=== PATIENT | male | born 1975 | race Caucasian/White ===

== ENCOUNTER 2023-04-15 19:48 | Observation (INO) | payer OTHER, SELFPAY ==
[2023-04-15] VITALS (7 sets, daily range): BP systolic 125–150; BP diastolic 46–89; PULSE 60–72; RESP 14–16; TEMP 36.8; O2SAT 97–100
--- NOTE | ~2023-04-15 | CT_ITS ---
EXAMINATION: CTA BRAIN/CAROTID DATE: 04/15/2023 20:07 INDICATION: Stroke with weakness, confusion and slurred speech TECHNIQUE: Computed tomographic angiography (CTA) of the head and neck was performed with 100 mL Omni paque-350 intravenous contrast. Multiplanar reconstructions and maximum intensity projection 3D-recon structions of the carotid arteries and of the intracranial arteries were created by the technologist on a separate workstation. Automated exposure control and iterative reconstruction technique were emp loyed.The dose-length product was 1222.53 mGy-cm. COMPARISON: None. FINDINGS: Carotid arteries: Visualized portion of the thoracic aorta is normal in caliber with no evident atherosclerotic plaque or dissection. There bridging near occlusion stenosis of the right carotid bulb relative to normal di stal artery lumen diameter (NASCET criteria) with nearly indiscernible threadlike contrast seen exten ding to the carotid siphon where there is significant collateral resupply of contrast via the right o phthalmic artery. There is no evident atherosclerotic plaque with 0% stenosis of the left carotid bul b relative to normal distal artery lumen diameter. There is complete occlusion of the left vertebral artery beginning at its origin. Mild groundglass opacity in the visualized upper lungs likely due to expiratory phase of imaging. Mild thoracic spondylosis. Intracranial arteries There is no hemodynamically significant stenosis basilar and left internal carotid arteries. There is a significant stenosis, likely 50-70% near the junction of the left vertebral and basilar arteries. There are no aneurysms identified. Both A1 and P1 segments are patent. There is also a patent anteri or communicating artery. Cerebral arterial arborization appears symmetric. The bilateral anteroinferi or cerebellar arteries are not identified with apparent decrease in contrast opacified vascularity in the bilateral cerebellar hemispheres. No abnormally enhancing brain lesions to suggest malignancy. IMPRESSION: 1. Likely near occlusion stenosis of the right carotid bulb relative to normal distal artery lumen di ameter (NASCET criteria). Nearly indiscernible threadlike contrast extending to the right carotid sip hon where there is a supplement-of flow via the right ophthalmic artery. 2. 0% stenosis of the left carotid bulb relative to normal distal artery lumen diameter. 3. 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 4. Significant likely 50-70% stenosis near the junction of the left vertebral and basilar arteries. 5. Bilateral posterior-inferior cerebellar arteries are not identified and there appears to be subjec tively decreased vascular flow to the bilateral cerebellar hemispheres relative to the flow to the ce rebral hemispheres. Reviewed, dictated and finalized at location A. IMPRESSION: 1. Likely near occlusion stenosis of the right carotid bulb relative to normal distal artery lumen diameter (NASCET criteria). Nearly indiscernible threadlike contrast extending to the right carotid siphon where there is a supplement-of flow via the right ophthalmic artery. 2. 0% stenosis of the left carotid bulb relative to normal distal artery lumen diameter. 3. 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 4. Significant likely 50-70% stenosis near the junction of the left vertebral a nd basilar arteries. 5. Bilateral posterior-inferior cerebellar arteries are not identified and ther e appears to be subjectively decreased vascular flow to the bilateral cerebella r hemispheres relative to the flow to the cerebral hemispheres.
--- NOTE | ~2023-04-15 | CT_ITS ---
EXAMINATION: CT brain wo con DATE: 04/15/2023 19:56 INDICATION: Stroke with weakness, confusion and slurred speech TECHNIQUE: Computed tomography (CT) of the head was performed without intravenous contrast. Sagittal and coronal reconstructions were performed. The mA was adjusted according to patient size. Iterative reconstruction technique was employed. The dose-length product was 681.00 mGy-cm. COMPARISON: None FINDINGS: Small regions of nonspecific decreased attenuation within the left and right cerebellar hemispheres f or which differential includes age-indeterminate infarcts. No acute intracranial hemorrhage or abnorm al extra axial fluid collection. Ventricles are normal and symmetric. No mass/mass effect. Mild mucos al thickening the left sphenoid and bilateral ethmoid sinuses. Small effusion in the hypopneumatized left mastoid. The orbits, paranasal sinuses and right mastoid air cells are normal. IMPRESSION: 1. Small regions of nonspecific decreased attenuation within the bilateral cerebellar hemispheres, at ypical for age. The differential diagnosis includes the indeterminate infarcts, premature chronic sma ll vessel ischemic disease (especially if the patient has cardiovascular risk factors), demyelinating disease such as multiple sclerosis, drug abuse, vasculitis, reactive astrocytosis (gliosis) secondar y to nonspecific etiology or metastatic disease. Reviewed, dictated and finalized at location A. IMPRESSION: 1. Small regions of nonspecific decreased attenuation within the bilateral cere bellar hemispheres, atypical for age. The differential diagnosis includes the i ndeterminate infarcts, premature chronic small vessel ischemic disease (especia lly if the patient has cardiovascular risk factors), demyelinating disease such as multiple sclerosis, drug abuse, vasculitis, reactive astrocytosis (gliosis) secondary to nonspecific etiology or metastatic disease.
--- NOTE | 2023-04-15 19:48 | ECG_ITS ---
Measurements Intervals [place] Rate: 64 P: -17 MO: 149 QRS: -63 QRSD: 109 T: 41 QT: 405 QTc: 420 Interpretive Statements SINUS RHYTHM MARKED LEFT AXIS DEVIATION [QRS AXIS < -30] NO PREVIOUS ECG AVAILABLE FOR COMPARISON Electronically Signed On 04-16-2023 10:59:55 CDT by Mark Cooley M.D.
--- NOTE | 2023-04-15 19:55 | PC.NURSE ---
pt A&Ox4 at this time. slurred speech has resolved. pt able to move all extremities without difficulty. pt states he is ready to go. states he was at [facility] and [place] today and was told he had a clot but he signed out because he didn't believe them.
--- NOTE | 2023-04-15 20:01 | ED.NEUROSD ---
HPI - Neuro Symptoms/Deficit General Chief Complaint: Suspected CVA Stated Complaint: CODE CVA History of Present Illness HPI Narrative: HPI limited due to patient's altered mental status This is a 47-year-old male, with past history of seizure, brought in by EMS with strokelike symptoms. Last known well unknown. According to EMS, the patient was seen earlier today at [facility] with report of finding a carotid vessel occlusion. On arrival the patient is aphasic. Related Data Allergies Allergy/AdvReac Type Severity Reaction Status Date / Time No Known Allergies Allergy Verified 04/15/23 21:02 Review of Systems Review of Systems: Unable to obtain review of systems due to patient's aphasia PMFSH Past Medical History Medical History (Updated 04/16/23 @ 01:02 by Prince Burden MD) Seizure Surgical History Surgical History (Updated 04/15/23 @ 20:06 by Prince Burden MD) No significant past surgical history Social History Social History (Updated 04/15/23 @ 20:06 by Prince Burden MD) Additional smoking assessment comments: Unknown smoking history Alcohol intake: unknown Substance use: unknown Exam Narrative: GENERAL: Well-developed, well-nourished, in mild distress HEAD: Normocephalic, atraumatic. EYES: PERRLA and right gaze preference ENT: Nares clear, no rhinorrhea or epistaxis. Mucous membranes moist. Oropharynx without tonsillar hypertrophy exudate or other lesions. NECK: Supple. No adenopathy or masses. No carotid bruits or JVD CHEST: Clear to auscultation. No respiratory distress. No wheezes rales or rhonchi HEART: Regular rate and rhythm. No murmur heard. Normal peripheral pulses. ABDOMEN: Soft, nontender, nondistended, normal active bowel sounds. EXTREMITIES: Normal range of motion. No edema. SKIN: Warm, dry, no rash. NEURO: Alert, unable to obtain orientation. Right upper and lower extremity hemiparalysis, right-sided lower facial droop, right-sided gaze preference. No noted ataxia on the left. Unable to assess for ataxia on the right. PSYCH: Normal mood and affect. Course Course Emergency Course: 20:20 - CT head not concerning for mass or bleed. I discussed the patient with neurologist, Dr. Woodson. My review of the CTA is concerning for right internal carotid occlusion. Given the patient's high initial NIH score and last known well approximately 3 AM, we agreed the patient is better served transferred to a facility with thrombectomy capabilities. I spoke with [facility] ED physician, Dr. Aquino who evaluated the patient earlier today. Notes patient had similar symptoms. His suspicion at the time was for seizure. The patient was given IV and oral Keppra. CT head was not concerning for mass or intracranial hemorrhage, though CTA was concerning for right internal carotid occlusion. The patient was discussed with [facility] with recommendation for transfer. The patient however left AGAINST MEDICAL ADVICE. 20:25 - On reevaluation, the patient's symptoms appear to have resolved. The patient may have had a seizure with Skyler's paralysis. 20:40 - CTA Head/Neck demonstrates Likely near occlusion stenosis of the right carotid bulb. CT Brain demonstrates changes concerning for possible early ischemic changes. Though the patient's symptoms are on the opposite suspected side, his near carotid occlusion is concerning. 21:01 - The patient states he wants to leave AGAINST MEDICAL ADVICE. I had a long conversation with him regarding the likelihood of repeat symptoms, the presence of his carotid vessel occlusion and the strong possibility of repeat symptoms, and permanent disability. I also advised him of recommended treatment, including likely transfer to a tertiary facility. The patient repeatedly insists he will not have repeat symptoms and has nothing wrong. He is alert and oriented x3. I briefly discussed the patient with legal compliance officer
[2023-04-15 20:05] LABS: Basophils Percent Auto 0.3 % (0.2-1.2); Eosinophils Absolute Auto 0.2 K/mm3 (0-0.3); Eosinophils Percent Auto 1.4 % (0-4.4); Hematocrit 54.2 % (42.0-52.0); Hemoglobin 17.5 g/dL (14.0-18.0); Immature Granulocyte Absolute 0.06 K/mm3 (0.00-0.031); Immature Granulocyte Percent A 0.5 % (0-0.5); Lymphocytes Absolute Auto 2.06 K/mm3 (0.9-3.2); Lymphocytes Percent Auto 17.5 % (18.3-44.2); Mean Corpuscular HGB Conc 32.3 g/dl (32-36); Mean Platelet Volume 9.7 fl (7.4-10.4); Monocytes Absolute Auto 0.8 K/mm3 (0.1-0.6); Monocytes Percent Auto 6.4 % (2.6-8.5); Neutrophils Absolute Auto 8.7 K/mm3 (1.3-6.7); Neutrophils Percent Auto 73.9 % (45.5-73.1); Platelet Count Result 263 k/mm3 (150-375); Red Blood Count 5.83 M/mm3 (4.6-6.20); White Blood Count 11.8 K/mm3 (4.5-10.0)
[2023-04-15 20:14] LABS: Ethanol < 10 mg/dL (<10)
[2023-04-15 20:15] LABS: Prothrombin Time 13.8 Seconds (11.1-14.7)
[2023-04-15 20:16] LABS: Alanine Aminotransferase 31 U/L (6-50); Albumin Level 4.6 g/dL (3.5-5.1); Alkaline Phosphatase 89 U/L (38-126); Anion Gap 10 mmol/L (8-16); Aspartate Amino Transferase 31 U/L (17-59); Bilirubin,Total 1.4 mg/dL (0.2-1.3); Blood Urea Nitrogen 13 mg/dL (9-20); Calcium 9.3 mg/dL (8.4-10.2); Carbon Dioxide 22 mmol/L (22-30); Chloride 105 mmol/L (98-107); Estimated Glomerular Filt Rate > 60; Glucose 110 mg/dL (65-110); Potassium 4.4 mmol/L (3.4-5.0); Sodium 137 mmol/L (137-145)
--- NOTE | 2023-04-15 20:30 | PC.NURSE ---
pt states he doesn't want anything done because he is signing out AMA. Dr. Burden explained the risks of signing out AMA.
[2023-04-15] MEDS: SODIUM CHLORIDE 0.9% IV 1,000 ML 999 ML (20:54)
[2023-04-16] VITALS (17 sets, daily range): BP systolic 112–149; BP diastolic 58–91; PULSE 52–75; RESP 16–22; TEMP 36.1–36.6; O2SAT 97–100; BMI 32.1
[2023-04-16 05:19] LABS: Appearance Urine Clear (Clear); Bilirubin Urine Negative (Negative); Blood Urine Negative (Negative); Color Urine Yellow (Yellow); Glucose Urine UA Negative (Negative); Ketones Urine 2+ mg/dL (Negative); Leukocyte Esterase Ur Negative LEU/UL (Negative); Nitrate Urine Negative (Negative); Protein Urine Negative (Negative)
--- NOTE | 2023-04-16 05:33 | PC.NURSE ---
2216: Accepted to [facility]. On waitlist for bed. 0527: Called for bed status, nothing available, yet. Will be based on discharges.
[2023-04-16 05:35] LABS: Barbiturate Screen Urine Negative (Negative); Benzodiazepines Screen Urine Negative (Negative)
[2023-04-16 05:47] LABS: Cannabinoid Screen Urine Positive (Negative); Cocaine Screen Urine Negative (Negative); Methadone Screen Urine Negative (Negative); Opiate Screen Urine Negative (Negative); Phencyclidine Screen Urine Negative (Negative)
[2023-04-16 06:01] LABS: Specific Grav Ur 1.069 (1.001-1.035)
[2023-04-16 06:02] LABS: Amphetamine Screen Urine Positive (Negative)
[2023-04-16 06:05] LABS: Add Urine Microscopic? NO
--- NOTE | 2023-04-16 06:37 | ADMGEN ---
This patient, Bo Lehman, was admitted to IMU Room 210-01. Patient/family oriented to hospital policies and general routines including ID bracelet, bed and alarms, visiting hours, pain management, procedures, bathroom and other care routines, personal items, smoking policy, room service/diet, and visiting hours. Information on how to activate the Rapid Response Team has been discussed. Patient/Family are encouraged to report perceived risks to care and to ask questions if they do not understand what they are told or what they should do.
[2023-04-16] MEDS: levETIRAcetam 500 MG TABLET PO ×2 (09:48→20:41)
--- NOTE | 2023-04-16 11:48 | PM.IMHP ---
H&P: HPI History of Present Illness Date/Time: 04/16/23 11:48 Chief Complaint: Seizure Narrative: 47-year-old male with history of seizures presenting with stroke-like symptoms. He has had intermittent episodes of right sided weakness and speech changes. His symptoms are resolved at this time. No chest pain or shortness of breath. No nausea, vomiting or diarrhea. No fevers or chills. Review of Systems Review of Systems: 12 point review of systems was assessed and was negative except as noted in the HPI [facility] Past Medical History Medical History Seizure Surgical History Surgical History No significant past surgical history Family History Family History Mother Hypertension Cerebrovascular accident Father Myocardial infarct Social History Social History Smoking packs per day: 0.5 Smoking cigarettes per day: 10.0 Years smoked: 10 Smoking pack-years: 5.00 Smoking status: Current every day smoker Additional smoking assessment comments: Unknown smoking history Alcohol intake: former Substance use: unknown Substance use type: marijuana and methamphetamine Last use: 04/09/23 Lack of Transportation: No Lack of Food: Never True Current Housing: I Have Housing Concerned About Future Housing: No Difficulty Paying Gas/Electric Bills: No Difficulty Paying for Meds: No Currently Unemployed: No Education: High School Diploma/GED Difficulty w/ Childcare or Family Care: No Spiritual care concerns: No Meds Home Medications and Allergies Home Medications Medication Instructions Recorded Confirmed Type No Home Medications 04/16/23 04/16/23 History Allergies Allergy/AdvReac Type Severity Reaction Status Date / Time No Known Allergies Allergy Verified 04/16/23 09:11 Vital Signs Vital Signs - 24 hr 04/15/23 19:37 04/15/23 20:05 04/15/23 20:15 Temperature 98.2 F Pulse Rate 63 Respiratory Rate 16 Blood Pressure 150/79 H 150/79 H Pulse Oximetry 98 Oxygen Delivery Room Air 04/15/23 20:17 04/15/23 21:17 04/15/23 21:47 Temperature Pulse Rate 60 Respiratory Rate 16 14 Blood Pressure 142/46 H 125/77 150/89 H Pulse Oximetry Oxygen Delivery 04/15/23 19:37 04/15/23 22:30 04/16/23 01:20 Temperature Pulse Rate 72 58 L Respiratory Rate 16 17 Blood Pressure 136/81 126/76 Pulse Oximetry 97 100 97 Oxygen Delivery 04/16/23 02:00 04/16/23 03:00 04/16/23 06:04 Temperature Pulse Rate 60 59 L 59 L Respiratory Rate 18 20 17 Blood Pressure 139/87 141/63 H 145/91 H Pulse Oximetry 97 98 97 Oxygen Delivery 04/16/23 06:20 04/16/23 06:45 04/16/23 06:40 Temperature 97.3 F L Pulse Rate 58 L 70 59 L Respiratory Rate 16 16 Blood Pressure 118/72 149/68 H Pulse Oximetry 98 99 Oxygen Delivery 04/16/23 08:00 04/16/23 08:49 04/16/23 08:00 Temperature 97.1 F L Pulse Rate 64 68 Respiratory Rate 16 Blood Pressure 143/64 H Pulse Oximetry 98 97 Oxygen Delivery Room Air 04/16/23 10:00 04/16/23 08:00 Temperature Pulse Rate 60 Respiratory Rate Blood Pressure Pulse Oximetry 97 Oxygen Delivery Room Air Exam Narrative: General: No acute distress, alert and oriented per baseline HEENT: Atraumatic, normocephalic, mucous membranes moist CV: Regular rate and rhythm, S1, S2 Lungs: Clear to auscultation bilaterally, no rales or crackles noted, no wheezes, good air entry Abdomen: Soft, nontender, nondistended Extremities: Normal to inspection Skin: No rashes noted, no lesions or wounds seen Psych: Euthymic, normal affect H&P: Results Labs Labs: Short CBC 04/15/23 Range/Units 19:59 WBC 11.8 H (4.5-10.0) K/mm3 Hgb 17.5 (14.0-18.
[2023-04-16 12:15] LABS: Basophils Percent Auto 0.4 % (0.2-1.2); Eosinophils Absolute Auto 0.3 K/mm3 (0-0.3); Eosinophils Percent Auto 2.7 % (0-4.4); Hematocrit 50.5 % (42.0-52.0); Hemoglobin 16.7 g/dL (14.0-18.0); Immature Granulocyte Absolute 0.05 K/mm3 (0.00-0.031); Immature Granulocyte Percent A 0.5 % (0-0.5); Lymphocytes Absolute Auto 2.03 K/mm3 (0.9-3.2); Mean Corpuscular HGB Conc 33.1 g/dl (32-36); Mean Corpuscular Hemoglobin 30.4 pg (26-34); Mean Platelet Volume 9.8 fl (7.4-10.4); Monocytes Absolute Auto 0.8 K/mm3 (0.1-0.6); Monocytes Percent Auto 7.1 % (2.6-8.5); Neutrophils Absolute Auto 7.5 K/mm3 (1.3-6.7); Neutrophils Percent Auto 70.3 % (45.5-73.1); Platelet Count Result 224 k/mm3 (150-375); Red Blood Count 5.49 M/mm3 (4.6-6.20); Red Cell Distribution Width 12.9 % (11.5-14.5); White Blood Count 10.7 K/mm3 (4.5-10.0)
[2023-04-16 12:27] LABS: Alanine Aminotransferase 29 U/L (6-50); Albumin Level 4.2 g/dL (3.5-5.1); Alkaline Phosphatase 85 U/L (38-126); Anion Gap 5 mmol/L (8-16); Aspartate Amino Transferase 28 U/L (17-59); Bilirubin,Total 1.2 mg/dL (0.2-1.3); Blood Urea Nitrogen 11 mg/dL (9-20); Calcium 8.9 mg/dL (8.4-10.2); Carbon Dioxide 23 mmol/L (22-30); Chloride 104 mmol/L (98-107); Estimated CRCL calculation 121 ml/min; Estimated Glomerular Filt Rate > 60; Glucose 97 mg/dL (65-110); Potassium 3.8 mmol/L (3.4-5.0); Sodium 132 mmol/L (137-145)
[2023-04-16 12:43] LABS: Glucose Point of Care 111 mg/dl (65-105)
[2023-04-16] MEDS: SODIUM CHLORIDE 0.9% IV 1,000 ML 999 ML IV CONT (16:18)
[2023-04-17] VITALS: PULSE 55; PULSE 63; RESP 16; O2SAT 98
[2023-04-17 02:00] VITALS: PULSE 54
[2023-04-17 04:00] VITALS: BP 153/65; PULSE 54; PULSE 72; PULSE 73; RESP 16; TEMP 36.5; O2SAT 100; O2SAT 98
[2023-04-17 04:59] LABS: Basophils Absolute Auto 0.1 K/mm3 (0.0-0.1); Basophils Percent Auto 0.5 % (0.2-1.2); Eosinophils Absolute Auto 0.4 K/mm3 (0-0.3); Eosinophils Percent Auto 3.5 % (0-4.4); Hematocrit 51.9 % (42.0-52.0); Hemoglobin 16.9 g/dL (14.0-18.0); Immature Granulocyte Absolute 0.05 K/mm3 (0.00-0.031); Immature Granulocyte Percent A 0.4 % (0-0.5); Lymphocytes Absolute Auto 2.63 K/mm3 (0.9-3.2); Lymphocytes Percent Auto 21.6 % (18.3-44.2); Mean Corpuscular HGB Conc 32.6 g/dl (32-36); Mean Platelet Volume 9.6 fl (7.4-10.4); Monocytes Absolute Auto 1.1 K/mm3 (0.1-0.6); Monocytes Percent Auto 8.8 % (2.6-8.5); Neutrophils Absolute Auto 7.9 K/mm3 (1.3-6.7); Neutrophils Percent Auto 65.2 % (45.5-73.1); Platelet Count Result 223 k/mm3 (150-375); Red Blood Count 5.64 M/mm3 (4.6-6.20); Red Cell Distribution Width 12.5 % (11.5-14.5); White Blood Count 12.2 K/mm3 (4.5-10.0)
[2023-04-17 05:11] LABS: Alanine Aminotransferase 33 U/L (6-50); Albumin Level 4.3 g/dL (3.5-5.1); Alkaline Phosphatase 97 U/L (38-126); Anion Gap 9 mmol/L (8-16); Aspartate Amino Transferase 30 U/L (17-59); Bilirubin,Total 1.4 mg/dL (0.2-1.3); Blood Urea Nitrogen 11 mg/dL (9-20); Carbon Dioxide 23 mmol/L (22-30); Chloride 105 mmol/L (98-107); Estimated CRCL calculation 139 ml/min; Estimated Glomerular Filt Rate > 60; Glucose 87 mg/dL (65-110); Sodium 137 mmol/L (137-145)
[2023-04-17 06:00] VITALS: PULSE 55
[2023-04-17 07:43] VITALS: BP 126/76; PULSE 75; RESP 18; TEMP 36.4; O2SAT 99
[2023-04-17 08:00] VITALS: PULSE 65; O2SAT 99
--- NOTE | 2023-04-17 08:46 | PM.TDS ---
Transfer Discharge Sum: Prov Provider Date of admission: 04/16/23 05:31 Primary care physician: Kaye Jessica, Admitting clinician: Jb Knight MD Consults: 04/16/23 05:32 Consult to Physician Routine Comment: Consulting Provider: Bola Woodson Reason for consultation: Possible seizure Has provider been notified: Yes DS: Admitting Diagnosis Discharge Date 04/17/23 Admitting Diagnosis right sided weakness DS: Discharge Diagnosis Discharge Diagnosis (1) Occlusion of right internal carotid artery: Code(s): I65.21 - Occlusion and stenosis of right carotid artery Status: Acute Assessment and Plan: Abnormal CT head, appreciate neurology consult Will likely also need neurosurgery consult and potential transfer for higher level of care (2) Acute right-sided muscle weakness: Code(s): M62.81 - Muscle weakness (generalized) Status: Acute Assessment and Plan: Nausea secondary to the abnormalities noted on the CT head (3) Seizure: Code(s): R56.9 - Unspecified convulsions Status: Acute Assessment and Plan: Likely secondary to above Plan DVT prophylaxis with SCDs GI prophylaxis not indicated Code status full code Transfer Discharge Sum: Med Medications Active and Home Medications: Home Medications No Home Medications 04/16/23 [History Confirmed 04/16/23] Active Medications Levetiracetam (Levetiracetam 500 Mg Tablet) 500 mg PO Q12HR ADOLPH Last Admin: 04/16/23 20:41 Dose: 500 mg Transfer Discharge Sum: Hosp Hospital Course Hospital course: 47-year-old male with history of seizures presenting with stroke-like symptoms. He has had intermittent episodes of right sided weakness and speech changes. His symptoms are resolved at this time. CTH: 1. Likely near occlusion stenosis of the right carotid bulb relative to normal distal artery lumen diameter (NASCET criteria). Nearly indiscernible threadlike contrast extending to the right carotid siphon where there is a supplement-of flow via the right ophthalmic artery. 2. 0% stenosis of the left carotid bulb relative to normal distal artery lumen diameter. 3. 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 4. Significant likely 50-70% stenosis near the junction of the left vertebral and basilar arteries. 5. Bilateral posterior-inferior cerebellar arteries are not identified and there appears to be subjectively decreased vascular flow to the bilateral cerebellar hemispheres relative to the flow to the cerebral hemispheres. Due to intermittent symtoms and severe abnormality, patient was transferred for higher level of care and evaluation. Time Spent with Patient Time attestation: Total time spent providing and/or coordinating transfer services: Exam Narrative: General: No acute distress, alert and oriented per baseline HEENT: Atraumatic, normocephalic, mucous membranes moist CV: Regular rate and rhythm, S1, S2 Lungs: Clear to auscultation bilaterally, no rales or crackles noted, no wheezes, good air entry Abdomen: Soft, nontender, nondistended Extremities: Normal to inspection Skin: No rashes noted, no lesions or wounds seen Psych: Euthymic, normal affect DS: Data Data Completed and Pending Labs on day of discharge: Labs from last 24 hours 04/17/23 04/16/23 04/15/23 04:50 12:08 19:51 WBC 12.2 H 10.7 H RBC 5.64 5.49 Hgb 16.9 16.7 Hct 51.9 50.5 MCV 92.0 92.0 MCH 30.0 30.4 MCHC 32.6 33.1 RDW 12.5 12.9 Plt Count 223 224 MPV 9.6 9.8 Immature Gran % (Auto) 0.4 0.5 Neut % (Auto) 65.2 70.3 Lymph % (Auto) 21.6 19.0 [place] % (Auto) 8.8 H 7.1 Eos % (Auto) 3.5 2.7 Baso % (Auto) 0.5 0.4 Lymph # (Auto) 2.63 2.03 [place] # (Auto) 1.1 H 0.8 H Eos # (Auto) 0.4 H 0.3 Baso # (Auto) 0.1 0.0 Abs Immat Gran (auto) 0.05 H 0.05 H Absolute Neuts (auto) 7.9 H 7.5 H Absolute
--- NOTE | 2023-04-17 09:51 | WPDNEURCNPN ---
Assessment and Plan Assessment and plan (1) Acute right-sided muscle weakness: Code(s): M62.81 - Muscle weakness (generalized) Status: Acute (2) Occlusion of right internal carotid artery: Code(s): I65.21 - Occlusion and stenosis of right carotid artery Status: Acute (3) Occlusion of right vertebral artery: Code(s): I65.01 - Occlusion and stenosis of right vertebral artery Status: Acute Plan Bo Lehman is a 47 year old male with a prior history of seizures, chronic smoking presenting for evaluation of right sided weakness. CTA brain/carotid significant for near occlusion of the R carotid bulb and complete occlusion of the right vertebral artery, which does not correlate with patient's R sided symptoms. Patient is currently awaiting transfer to tertiary center given CTA findings. - In the meantime - Start Aspirin 81mg daily; if there is acute stroke, may need to add Plavix - Obtain MRI brain w/o contrast - Check HgbA1c, LDL; may need statin, if confirmed stroke goal <70 - Allow for permissive hypertension, with goal <220/120 - Surface echocardiogram with bubble study Consult date: 04/17/23 Reason for consult: Concern for seizure vs stroke HPI: Bo Lehman is a 47 year old male with a prior history of seizures, chronic smoking presenting for evaluation of right sided weakness. Patient was initially seen on the day of presentation at [facility] for right sided weakness. He was seen by Dr. Aquino in the ED and it was thought that patient had had a seizure. Patient presented again for right sided weakness, but this time to [place] ED. In the ED, patient was aphasic, had RUE weakness, R facial droop, R gaze preference. CT head was negative for any acute changes. CTA brain/carotid showed likely near occlusion stenosis of the right carotid bulb, complete occlusion of the right vertebral artery, significant 50-70% stenosis near the junction of the left vertebral and basilar arteries. . Because of the near occlusion, patient was accepted to transfer to [facility], although acute intervention was not recommended at this time by the [facility] providers that were contact by the ED. Patient does not have any list of home medications in his chart. He is currently only getting scheduled Keppra during this admission. [facility] Past Medical History Medical History Seizure Surgical History Surgical History No significant past surgical history Family History Family History Mother Hypertension Cerebrovascular accident Father Myocardial infarct Social History Social History Smoking packs per day: 0.5 Smoking cigarettes per day: 10.0 Years smoked: 10 Smoking pack-years: 5.00 Smoking status: Current every day smoker Additional smoking assessment comments: Unknown smoking history Alcohol intake: former Substance use: unknown Substance use type: marijuana and methamphetamine Last use: 04/09/23 Lack of Transportation: No Lack of Food: Never True Current Housing: I Have Housing Concerned About Future Housing: No Difficulty Paying Gas/Electric Bills: No Difficulty Paying for Meds: No Currently Unemployed: No Education: High School Diploma/GED Difficulty w/ Childcare or Family Care: No Spiritual care concerns: No Meds Home Medications and Allergies Home Medications Medication Instructions Recorded Confirmed Type No Home Medications 04/16/23 04/16/23 History Allergies Allergy/AdvReac Type Severity Reaction Status Date / Time No Known Allergies Allergy Verified 04/16/23 09:11 Vital Signs Vital Signs - 24 hr 04/16/23 10:00 04/16/23 12:00 04/16/23 12:00 Temperature 36.1 C L Pulse Rate 60 68 71 Respiratory Rate 16 Blood Pressure
== END 2023-04-17 09:43 | disposition short-term general hospital (02) ==
LOC: ANHED 04-16 05:34 → ANHIMU 04-16 07:19
PROVIDERS: Internal Medicine; Admitting Provider Student in an Organized Health Care Education/Training Program; Emergency Provider Preventive Medicine Aerospace Medicine; PCP Family Medicine; Visit Provider Student in an Organized Health Care Education/Training Program
DX: I65.21 Occlusion and stenosis of right carotid artery (principal); M62.81 Muscle weakness (generalized); R56.9 Unspecified convulsions; F17.210 Nicotine dependence, cigarettes, uncomplicated; Z82.3 Family history of stroke
CPT/HCPCS: 36415; 70450; 70496; 70498; 80053; 80307; 81003; 82948; 85025; 85610; 93005; 99285; A9270; G0378; G0379; J7030; Q9967

== ENCOUNTER 2023-06-11 09:31 | Outpatient (CLI) | payer OTHER, SELFPAY ==
--- NOTE | 2023-06-11 | ECHO_ITS ---
Patient Info Name: Bo Lehman Age: 47 years : 1975 Gender: Male Ht: 68 in Wt: 205 lbs BSA: 2.14 m2 HR: 64 bpm BP: 130 / 77 mmHg Heart Rhythm: Sinus Rhythm Technical Quality: Good Exam Date: 06/11/2023 9:50 AM Exam Location: [facility] Pulmonary Patient Status: Outpatient Admit Date: 06/11/2023 Staff Ordering Physician: KIM WEST Postal Inspector: Sangeeta Llanos RDCS Attending Provider: KIM WEST Exam Type: CA echo doppler color flow Study Info Indications I63.9 - CEREBROVASCULAR ACCIDENT, UNSPECIFIED MECHANISM Complete two-dimensional, color flow and Doppler transthoracic echocardiogram is performed. Summary 1. Complete two-dimensional, color flow and Doppler transthoracic echocardiogram is performed. 2. Left ventricular chamber dimension is normal. 3. Left ventricular systolic function is normal, estimated at 60-65%. 4. There is no increased left ventricular wall thickness. 5. The left ventricular diastolic function is grade II diastolic dysfunction. 6. Global longitudinal strain is mildly elevated at -17 %. 7. There is mild aortic valve calcification. In the 3 chamber view there is evidence for a fixed calcified echodensity subaortic location consistent with other calcified plaque or subaortic membrane. Given the appearance, less likely vegetation, however, this cannot be entirely excluded. Clinical correlation advised. Recommend transesophageal echocardiogram for further evaluation. 8. There is no aortic valve stenosis. 9. The aortic valve is probable trileaflet. 10. There is trace aortic valve regurgitation. 11. Recommend transesophageal echocardiogram. Recommendations * Recommend transesophageal echocardiogram. Left Ventricle Left ventricular chamber dimension is normal. Left ventricular systolic function is normal, estimated at 60-65%. There is no increased left ventricular wall thickness. The left ventricular diastolic function is grade II diastolic dysfunction. Global longitudinal strain is mildly elevated at -17 %. Right Ventricle Right ventricular chamber dimension is normal. Right ventricular systolic function is normal. Left Atria Left atrial chamber dimension is mildly enlarged. Right Atria Right atrial chamber dimension is normal. Aortic Valve The aortic valve is probable trileaflet. There is no aortic valve stenosis. There is trace aortic valve regurgitation. There is mild aortic valve calcification. In the 3 chamber view there is evidence for a fixed calcified echodensity subaortic location consistent with other calcified plaque or subaortic membrane. Given the appearance, less likely vegetation, however, this cannot be entirely excluded. Clinical correlation advised. Recommend transesophageal echocardiogram for further evaluation. Pulmonic Valve The pulmonic valve is not well visualized. There is trace pulmonic regurgitation. Mitral Valve The mitral valve has normal leaflets. There is trace mitral valve regurgitation. The mitral valve annulus is mildly calcified. Tricuspid Valve The tricuspid valve leaflets are normal. There is mild tricuspid valve regurgitation. No pulmonary hypertension, estimated pulmonary arterial systolic pressure is 28 mmHg. Pericardium/Pleural The pericardium appears epicardial fat pad. There is no pericardial effusion. Inferior Vena Cava Normal inferior vena cava with >50% collapse upon inspiration consistent with normal right atrial pressure, 5 mmHg. Aorta The aortic root size at the sinus of Valsalva is normal. There is moderate aortic atherosclerosis. Left Ventric
== END 2023-06-11 09:32 | disposition home or self-care (01) ==
LOC: ANHCARD 09:32
PROVIDERS: PCP Family Medicine
DX: I63.9 Cerebral infarction, unspecified (principal); I70.0 Atherosclerosis of aorta
CPT/HCPCS: 93306